=== PATIENT | male | born 1945 | race Caucasian/White ===

== ENCOUNTER 2017-04-17 12:48 | Emergency (ER) | payer OTHER ==
[~2017-04-17] VITALS: Ht 170.2 cm; Wt 70.3 kg
[2017-04-17] MEDS ORDERED: TAMS0.4C (13:08)
[2017-04-17] MEDS ORDERED: COZAAR100 MG (13:08)
[2017-04-17] MEDS ORDERED: OMEPRAZOLE20 MG (13:09)
== END 2017-04-17 23:47 | disposition home or self-care (01) ==
LOC: ER 12:48
DX: R31.0 Gross hematuria (principal)

== ENCOUNTER 2017-04-26 16:58 | Inpatient (IN) | payer OTHER ==
[~2017-04-26] VITALS: Ht 170.2 cm; Wt 71.7 kg
[~2017-04-26 16:58] MED LIST: COZAAR100 MG; OMEPRAZOLE20 MG; TAMS0.4C
[2017-04-26] MEDS ORDERED: PROSCAR5 MG (17:25)
[2017-04-26] MEDS ORDERED: LIPITOR20 MG (17:25)
== END 2017-04-28 08:58 | disposition home or self-care (01) | DRG 696 ==
LOC: ER 16:58 → SEC-K 04-27 07:50 → SURG 04-27 11:21
DX: R31.0 Gross hematuria (principal); R33.8 Other retention of urine

== ENCOUNTER → 2018-05-21 | Emergency (ER) | payer OTHER ==
[~2018-05-21] VITALS: Ht 170.2 cm; Wt 73.5 kg
[~2018-05-21] MED LIST changes: +LIPITOR20 MG; +PROSCAR5 MG; +ZYLOPRIM300 MG
== END | disposition left against medical advice (07) ==
LOC: ER 08:33
DX: Z53.20 Procedure and treatment not carried out because of patient's decision for unspecified reasons (principal)